=== PATIENT | male | born 2000 | race Caucasian/White ===

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

== ENCOUNTER → 2021-10-28 | Outpatient (CLI) | payer BC, OTHER ==
--- NOTE | 2021-10-28 11:24 | FL ---
ESOPHOGRAM. HISTORY: Dysphagia Esophagram was performed per the air contrast technique. The patient swallowed barium and effervesce nt crystals without difficulty or delay. Esophageal peristalsis and motility appear to be within normal limits. There is no evidence for filling defect, mass or diverticulum. No hiatal hernia seen. Subsequently single contrast cervical esophagram was performed which fails demonstrate evidence for a spiration penetration or mass. IMPRESSION: Unremarkable study.
== END | disposition home or self-care (01) ==
LOC: RADUSWWP 09:40
PROVIDERS: ATTEND Otolaryngology
DX: R13.10 Dysphagia, unspecified (principal)
CPT/HCPCS: 74220

== ENCOUNTER 2022-04-20 14:19 | Emergency (ER) | payer BC, OTHER ==
--- NOTE | 2022-04-20 15:14 | XR ---
EXAMINATION TYPE: XR KUB DATE OF EXAM: 04/20/2022 COMPARISON: None INDICATION: Swallowed Bhavin wrench TECHNIQUE: Single view abdomen upright view images were obtained from the lung base to the pubic rami . FINDINGS: There is a normal bowel gas pattern. Psoas margins are normal. No organomegaly is present. No radiopaque foreign bodies are evident within the field of view. Consider chest x-ray to evaluate f or esophageal foreign body IMPRESSION: 1. Unremarkable Abdomen grade 2. No radiopaque foreign bodies within the [id number]
--- NOTE | 2022-04-20 15:40 | XR ---
EXAMINATION TYPE: XR chest 1V DATE OF EXAM: 04/20/2022 COMPARISON: None INDICATION: Foreign body TECHNIQUE: Single frontal view of the chest is obtained. FINDINGS: The heart size is normal. The pulmonary vasculature is normal. The lungs are clear. No radiopaque foreign body is evident within the field of view. IMPRESSION: 1. No acute pulmonary process.
--- NOTE | 2022-04-20 18:18 | ED ---
General Adult HPI - General Chief complaint: Skin/Abscess/Foreign Body Stated complaint: [facility], SALO Time Seen by Provider: 04/20/22 18:11 Source: patient Mode of arrival: ambulatory Limitations: no limitations - History of Present Illness Initial comments: This patient is 21-year-old man who presents with complaint that he may have swallowed an Bhavin wrench. The patient states that he was working above his head with the Bhavin wrench showerhead. He states that he dropped the wrench and felt it strike his tooth and then he was unable to find it after that. He was concerned he may have swallowed it. Patient is denying cough, dyspnea, gagging. He is not having any oral pharyngeal, chest or abdominal pain. Onset/Timin -: hour(s) Severity scale (1-10): 0 Improves with: none Worsens with: none Associated Symptoms: denies other symptoms - Related Data Home Medications Medication Instructions Recorded Confirmed No Known Home Medications 08/15/17 08/15/17 Allergies Allergy/AdvReac Type Severity Reaction Status Date / Time No Known Allergies Allergy Verified 08/15/17 09:57 Review of Systems ROS Statement: Those systems with pertinent positive or pertinent negative responses have been documented in the HPI. ROS Other: All systems not noted in ROS Statement are negative. ENT: Denies: throat pain Respiratory: Denies: cough, dyspnea Cardiovascular: Denies: chest pain Gastrointestinal: Denies: abdominal pain, nausea, vomiting Past Medical History Past Medical History: No Reported History History of Any Multi-Drug Resistant Organisms: None Reported Past Surgical History: Orthopedic Surgery Past Anesthesia/Blood Transfusion Reactions: No Reported Reaction Past Psychological History: No Psychological Hx Reported Past Alcohol Use History: None Reported Past Drug Use History: None Reported General Exam Limitations: no limitations General appearance: alert, in no apparent distress Head exam: Present: atraumatic, normocephalic Eye exam: Present: normal appearance Respiratory exam: Present: normal lung sounds bilaterally. Absent: respiratory distress, wheezes, rales, rhonchi, stridor Cardiovascular Exam: Present: regular rate, normal rhythm, normal heart sounds. Absent: systolic murmur, diastolic murmur, rubs, gallop GI/Abdominal exam: Present: soft. Absent: distended, tenderness, guarding, rebound, rigid Neurological exam: Present: alert Course Vital Signs 11/29/22 14:40 Temperature 98 F Pulse Rate 85 Respiratory 16 Rate Blood Pressure 136/81 O2 Sat by Pulse 99 Oximetry Disposition Clinical Impression: No problem, feared complaint unfounded Disposition: HOME SELF-CARE Condition: Good Is patient prescribed a controlled substance at d/c from ED?: No Referrals: None,Stated [Primary Care Provider] - 1-2 days
[2022-04-20 18:50] VITALS: BP 110/78; PULSE 88; RESP 18; TEMP 97.2
== END 2022-04-20 18:48 | disposition home or self-care (01) ==
LOC: EC 14:19
DX: Z71.1 Person with feared health complaint in whom no diagnosis is made (principal)
CPT/HCPCS: 71045; 74018; 99284